=== PATIENT | male | born 1975 | race Caucasian/White ===

== ENCOUNTER 2019-01-20 00:13 | Emergency (ER) | payer OTHER ==
[2019-01-20 00:23] VITALS: BP 154/85; BMI 24.0
[2019-01-20 00:33] VITALS: RESP 18
[2019-01-20] MEDS ORDERED: Sodium Chloride 0.9% 1,000 ML IV STA (00:38)
--- NOTE | 2019-01-20 00:55 | ED PDOC ---
History of Present Illness History of Present Illness: 44 years old [place] male presents to ER for evaluation of flu-like symptoms for 1 day. Patient reports fever with T-max of 103 degree, chills, bodyaches and nasal congestion. He states he took Ibuprofen and just completed Amoxicillin and Augmentin. Patient denies taking flu vaccine, vomiting, diarrhea or shortness of breath. PMD: None provided HPI: Influenza Time Seen by Provider: 01/20/19 00:37 Chief Complaint: Flu-like Symptoms Chief Complaint (Provider): Flu-like Symptoms History Per: Patient Exam Limitations: no limitations Onset/Duration Of Symptoms: Days (x1) Symptoms include: fever, bodyaches, nasal congestion. denies: vomiting, diarrhea, difficulty breathing Past Medical History Reviewed: Historical Data, Nursing Documentation, Vital Signs Vital Signs: Last Vital Signs Temp 102.4 F H 01/20/19 00:30 Pulse 110 H 01/20/19 00:30 Resp 18 01/20/19 00:30 BP 154/85 H 01/20/19 00:30 Pulse Ox 98 01/20/19 00:30 - Medical History PMH: No Chronic Diseases - Surgical History Other surgeries: Deviated septum - Family History Family History: States: Unknown Family Hx - Social History Current smoker - smoking cessation education provided: No Alcohol: None Drugs: Denies - Home Medications Home Medications: Ambulatory Orders Medication Instructions Recorded Oseltamivir Cap [Tamiflu] 75 mg PO BID #10 cap 01/20/19 - Allergies Allergies/Adverse Reactions: Allergies Allergy/AdvReac Type Severity Reaction Status Date / Time No Known Allergies Allergy Verified 01/20/19 00:38 Review of Systems ROS Statement: Except As Marked, All Systems Reviewed And Found Negative Constitutional: Positive for: Fever, Chills, Other (Bodyaches) Respiratory: Negative for: Shortness of Breath Gastrointestinal: Negative for: Vomiting, Diarrhea Physical Exam - Reviewed Nursing Documentation Reviewed: Yes Vital Signs Reviewed: Yes - Physical Exam Appears: Positive for: Well, No Acute Distress Head Exam: Positive for: ATRAUMATIC, NORMOCEPHALIC Skin: Positive for: Warm (Febrile) Eye Exam: Positive for: Normal appearance, EOMI, PERRL ENT: Positive for: Normal ENT Inspection Neck: Positive for: Normal, Painless ROM, Supple Cardiovascular/Chest: Positive for: Tachycardia Respiratory: Positive for: Normal Breath Sounds. Negative for: Respiratory Distress Gastrointestinal/Abdominal: Positive for: Normal Exam, Soft. Negative for: Tenderness Back: Positive for: Normal Inspection. Negative for: L CVA Tenderness, R CVA Tenderness Extremity: Positive for: Normal ROM. Negative for: Pedal Edema, Swelling Neurologic/Psych: Positive for: Alert, Oriented (x3) Medical Decision Making Medical Decision Making: Time: 37 Initial Impression: 44 years old male with flu-like symptoms Initial Plan: --CMP --CBC --Tamiflu 75 mg PO --Toradol 30 mg IV --Tylenol 325 mg PO --Blood culture --[place] --Rapid strep group A antigen --Influenza A B --Urinalysis 0210 Labs reviewed and significant for positive strep and flu antigen. Patient reports improvement in symptoms and he is no longer febrile. Patient providing opinion that he is positive for strep due to recent treatment for strep. Given no clinical evidence of strep throat, will not treat for strep pharyngitis. Diagnosis: Influenza Scribe Attestation: Documented by Gudelia Fish, acting as a scribe for Blu Momin MD. Provider Scribe Attestation: All medical record entries made by the Scribe were at my direction and personally dictated by me. I have reviewed the chart and agree that the record accurately reflects my personal performance of the history, physical exam, medical decision making, and the department course for this patient. I have also personally directed, reviewed, and agree with the discharge instructions and disposition. - Laboratory Results Result Diagrams: 01/20/19 01:00 01/20/19 01:00 - ECG O2 Sat by Pulse Oximetry: 98 (RA) Pulse Ox Interpretation: Normal Disposition - Clinical Impression Clinical Impression: Influenza-like symptoms - Patient ED Disposition Is Patient to be Admitted: No - Disposition Disposition: Routine/Home Disposition Time: 02:10 Condition: IMPROVED Prescriptions: Oseltamivir Cap [Tamiflu] 75 mg PO BID #10 cap Instructions: Flu Forms: [employer] ([place]ian)
[2019-01-20 01:08] LABS: BASO % 0.2 % (0.0-2.0); EOS # 0.1 K/uL (0.0-0.7); EOS % 1.3 % (0.0-4.0); HEMOGLOBIN 12.9 g/dL (12.0-18.0); LYMPH # 0.6 K/uL (1.0-4.3); LYMPH % 9.6 % (20.0-40.0); MEAN CELL VOLUME 88.6 fl (80.0-94.0); MEAN CORPUSCULAR HEMOGLOBIN 29.8 pg (27.0-31.0); MEAN CORPUSCULAR HGB CONC 33.7 g/dL (33.0-37.0); MEAN PLATELET VOLUME 7.9 fl (7.2-11.7); MONO # 0.4 K/uL (0.0-0.8); MONO % 6.2 % (0.0-10.0); NEUT % 82.7 % (50.0-75.0); PLATELET COUNT 173 K/uL (130-400); RBC 4.32 Mil/uL (4.40-5.90); RED CELL DISTRIBUTION WIDTH 12.2 % (11.5-14.5)
[2019-01-20 01:25] LABS: ALB/GLOB RATIO 1.2 (1.0-2.1); ALBUMIN 4.2 g/dL (3.5-5.0); ALT/SGPT 24 U/L (21-72); AST/SGOT 22 U/L (17-59); BLOOD UREA NITROGEN 17 mg/dl (9-20); CALCIUM 9.1 mg/dL (8.4-10.2); GFR NON-AFRICAN AMERICAN > 60
[2019-01-20 02:05] VITALS: PULSE 96; TEMP 98.8
[2019-01-20 02:13] VITALS: O2SAT 98
[2019-01-20 02:14] LABS: SQUAMOUS EPITHIAL < 1 /hpf (0-5); URINE BILIRUBIN NEGATIVE (NEGATIVE); URINE BLOOD SMALL (NEGATIVE); URINE CLARITY CLEAR (Clear); URINE COLOR STRAW (YELLOW); URINE GLUCOSE (UA) NEG (NEGATIVE); URINE LEUKOCYTE ESTERASE NEG Leu/uL (Negative); URINE PROTEIN NEGATIVE (NEGATIVE); URINE UROBILINOGEN 0.2-1.0 mg/dL (0.2-1.0)
[2019-01-20 02:40] LABS: ANISOCYTOSIS SLIGHT; BANDS 3 % (0-2); EOSINOPHIL 1 % (0-7); LYMPHOCYTE 9 % (20-50); MONOCYTE 1 % (0-10); NEUTROPHIL 82 % (42-75); PLATELET ESTIMATE NORMAL (NORMAL); REACTIVE LYMPHOCYTES 4 % (0-0); SPHEROCYTES SLIGHT; TOTAL CELLS COUNTED 100
== END 2019-01-20 02:13 | disposition home or self-care (01) ==
LOC: H.ER 00:13
DX: J11.1 Influenza due to unidentified influenza virus with other respiratory manifestations (principal)
CPT/HCPCS: 80053; 81003; 85025; 86308; 87040; 87430; 87804; 96360; 99283; J1885; J7030